=== PATIENT | female | born 1970 | race Caucasian/White ===

== ENCOUNTER 2018-03-15 21:31 | Inpatient (IN) | payer BC ==
[~2018-03-15] VITALS: Ht 167.6 cm; Wt 78.5 kg
--- NOTE | ~2018-03-15 | HC ---
[facility] [place] [address] CONSULTATION Name: LIUDMILA ESCALERA Room #: 411-P [facility] IN M.R.#: [id number] Admission: 03/15/18 Attend Phys: Rangel Santizo MD Discharge: 03/16/18 Date of : 74 Report #: [id number] THIS REPORT FOR: //name// CC: Rangel Sweet CHIEF COMPLAINT: Right ureteral stone. HISTORY OF PRESENT ILLNESS: The patient is a very pleasant 47-year-old woman who is being seen today at the request of Dr. Santizo for evaluation and management of right distal ureteral stone. Specifically, she was admitted through the emergency room with a right distal ureteral stone. She has complained of urgency and frequency and had discomfort. She currently is pain free and not requiring any pain medication. ALLERGIES: TEQUIN. ILLNESSES: Nephrolithiasis, hypertension, and hypercholesterolemia. HOME MEDICATIONS: Include fenofibrate 160 mg daily, Lopressor 100 mg daily, and albuterol sulfate. SOCIAL HISTORY: Nonsmoker. She does not drink. REVIEW OF SYSTEMS: No shortness of breath or chest pain. PHYSICAL EXAMINATION: GENERAL: She is a comfortable woman. She appears in no acute distress. VITAL SIGNS: Temperature is 36.2, pulse 57, respirations 16, and blood pressure 86/44. ABDOMEN: Soft. LABORATORY DATA: White count 9.3 thousand, hemoglobin 12.4, hematocrit 35.6, and platelets 382,000. Sodium 136, potassium 4.0, chloride 102, CO2 of 21, BUN 25, and creatinine is 1.0. Urine is clear yellow, specific gravity is 1.010, pH is 6, negative ketones, blood or nitrites. CT scan shows a small right renal stone with a dilated renal pelvis and ureter with a stone that measures 3.2 x 5.6 mm right at the ureterovesical junction on the right side. IMPRESSION: Right hydronephrosis, right ureterovesical junction stone. PLAN: Strain urine to check a KUB, recommend Flomax, if her blood pressure is above 100 systolic, she certainly could be observed for the time being with a very close followup and if her pain is controlled, she could even be discharged with a short term followup in the office. Otherwise, I did discuss ureteroscopy with her and issues related to stent placement and stent removal. [address] [address] CONSULTATION Name: LIUDMILA ESCALERA Room #: 411-P [facility] IN M.R.#: [id number] Admission: 03/15/18 Attend Phys: Rangel Santizo MD Discharge: 03/16/18 Date of : 74 Report #: [id number] Thank you for allowing me to participate in her care. By: 0738 1105 Dean Champion MD /nt
[~2018-03-15 21:31] MED LIST changes: -FENOFIBRATE160 MG PO; -FLOMAX0.4 MG PO; -LOPRESSOR100 M1 PO; -OLMESARTAN MEDO40 MG PO; -VENTOLIN HFA 1818 GM INH
[2018-03-15 21:32] VITALS: BP 120/79
[2018-03-15 22:05] LABS: URINE BILIRUBIN NEGATIVE (Negative); URINE BLOOD NEGATIVE (Negative); URINE CLARITY CLEAR; URINE COLOR YELLOW; URINE GLUCOSE-RANDOM* NEGATIVE (Negative); URINE KETONES NEGATIVE (Negative); URINE LEUKOCYTES NEGATIVE (Negative); URINE NITRITE NEGATIVE (Negative); URINE PROTEIN (DIPSTICK) NEGATIVE (Negative); URINE UROBILINOGEN 0.2 E.U./dl (0.2-1.0)
[2018-03-15 22:17] LABS: ABSOLUTE NEUTROPHILS 6.3 thou/uL (1.4-8.2); BASOPHILS 0.6 % (0.0-2.0); EOSINOPHILS 0.7 % (0.0-3.0); HEMATOCRIT 35.6 % (37.0-47.0); HEMOGLOBIN 12.4 gm/dL (12.0-15.0); LYMPHOCYTES 23.8 % (24.0-44.0); MCH 29.4 pg (26.0-34.0); MCHC 34.8 g/dL (28.0-37.0); MCV 84.5 fL (80.0-100.0); MONOCYTES 7.3 % (1.0-8.0); PLATELET COUNT 382 thou/uL (150-400); POLYS 67.6 % (36.0-66.0); RBC 4.21 mil/uL (4.20-5.00); RDW 13.1 % (10.5-14.5); WBC 9.3 thou/uL (4.0-11.0)
[2018-03-15 22:31] LABS: CALCIUM 9.9 mg/dL (8.5-10.1)
[2018-03-15] MEDS ORDERED: LOPRESSOR100 M1 PO (22:32)
[2018-03-15] MEDS ORDERED: OLMESARTAN MEDO40 MG PO (22:33)
[2018-03-15 22:35] LABS: ALBUMIN 4.5 g/dL (3.4-5.0); TOTAL BILIRUBIN 0.4 mg/dL (<0.1-1.0); TOTAL PROTEIN 7.8 g/dL (6.4-8.2)
[2018-03-15] MEDS ORDERED: FENOFIBRATE160 MG PO (22:36)
[2018-03-15] MEDS ORDERED: VENTOLIN HFA 1818 GM INH (22:37)
[2018-03-16 01:10] VITALS: BP 110/63
[2018-03-16 01:34] VITALS: BP 103/63
[2018-03-16 04:00] VITALS: BP 86/44
[2018-03-16 08:36] VITALS: BP 94/63
[2018-03-16] MEDS ORDERED: FLOMAX0.4 MG PO (09:21)
[2018-03-16 10:02] VITALS: BP 94/63
== END 2018-03-16 10:50 | disposition home or self-care (01) | DRG 694 ==
LOC: ER 21:31 → 4N 23:54 → EROBS 23:54 → 4N 03-16 01:10
PROVIDERS: Physician Assistant
DX: N13.2 Hydronephrosis with renal and ureteral calculous obstruction (principal); I10 Essential (primary) hypertension; K59.00 Constipation, unspecified; E78.00 Pure hypercholesterolemia, unspecified; N83.202 Unspecified ovarian cyst, left side; N83.201 Unspecified ovarian cyst, right side; Z79.899 Other long term (current) drug therapy; Z88.8 Allergy status to other drugs, medicaments and biological substances

== ENCOUNTER → 2018-03-15 | Outpatient (CLI) | payer BC ==
[~2018-03-15] MED LIST: FENOFIBRATE160 MG PO; FLOMAX0.4 MG PO; IBUPROFEN 600600 M1 PO; LOPRESSOR100 M1 PO; NORCO 5-325 TA1 EACH PO; OLMESARTAN MEDO40 MG PO; VENTOLIN HFA 1818 GM INH
== END ==
LOC: ULTRA 15:16
DX: N83.291 Other ovarian cyst, right side (principal); N83.292 Other ovarian cyst, left side

== ENCOUNTER → 2018-03-30 | Outpatient (CLI) | payer BC ==
[~2018-03-30] MED LIST changes: +FENOFIBRATE160 MG PO; +FLOMAX0.4 MG PO; +LOPRESSOR100 M1 PO; +OLMESARTAN MEDO40 MG PO; +VENTOLIN HFA 1818 GM INH
== END ==
LOC: RAD 00:36
DX: Z12.31 Encounter for screening mammogram for malignant neoplasm of breast (principal)

== ENCOUNTER → 2018-10-18 | Outpatient (CLI) | payer BC ==
[~2018-10-18] MED LIST changes: +XANAX 0.5 MG0.5 MG PO
--- NOTE | ~2018-10-18 | H ---
[facility] [place] [address] HISTORY AND PHYSICAL Name: LIUDMILA ESCALERA Room #: REG [facility] M..#: [id number] Admission: 10/18/18 Attend Phys: Ethan Hawthorne MD Discharge: Date of : 74 Report #: [id number] THIS REPORT FOR: //name// CC: Ethan Sweet MD DATE OF SERVICE: 10/18/2018 HISTORY OF PRESENT ILLNESS: The patient is a 48-year-old who came to the office today because of noticing a lump in the armpit. This is on her left side. The patient did have 3D mammogram in March and she was told that everything was fine on that. This has been there for about a year. Two to three weeks ago, she has noticed some more discomfort when she lies on the left side. No significant pain, but she is having more symptoms from it. No history of redness. The patient feels like this is about 5-6 cm. The patient initially thought that this was a problem with ingrown hair related to her shaving trauma. She has not noticed anything on the right side. The patient denies any fevers, chills or night sweats. No history of diabetes. The patient does not have any cats. She denies any weight loss. The patient did have some issues with kidney stones and urinary tract infection. She has been on antibiotics for that I believe summertime, wintertime. PAST MEDICAL HISTORY: The patient had a CT done today. There is extensive left axillary adenopathy. I did review her mammogram from March that was unremarkable. The radiologist thought that one of the possibilities is that this could be metastatic from breast cancer, but I do not think that is the case, I think this is probably lymphoma. The patient is recommended to undergo biopsy because of the suspicious for lymphoma. Open biopsy with sampling is recommended. The patient understands this and wishes to proceed. PAST MEDICAL HISTORY: She has a history of high blood pressure, elevated cholesterol. MEDICATION: Metoprolol, fenofibrate. ALLERGIES: SHE IS ALLERGIC TO TEQUIN. SIGNIFICANT OTHER ILLNESSES: No other medical history of any illnesses. No heart disease, no lung, liver disease, no kidney disease, no liver disease, no bleeding disorder, no history of blood clot. FAMILY HISTORY: There is diabetes in the family. She does not think there is any cancer history in the family. 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 She does not smoke, does not drink. REVIEW OF SYSTEMS: No headache, blurred vision, no chest pain or palpitation. No nausea or vomiting. No muscle weakness, numbness. PHYSICAL EXAMINATION: GENERAL: The patient is well-nourished female in no acute distress. HEENT: Pupils react to light. Extraocular muscles are intact. Oropharynx is clear. NECK: No adenopathy. No supraclavicular adenopathy. LUNGS: Clear to auscultation. HEART: Regular rate and rhythm. No murmur or gallop. The patient does have extensive left axillary adenopathy on exam. Actually, fairly firm feeling mass is present, quite suspicious for malignancy. ABDOMEN: Soft, nondistended, nontender. No organomegaly. EXTREMITIES: No cyanosis, clubbing or edema. The patient moves all extremities well. IMPRESSION: The patient is a 48-year-old who has abnormal mass in the left axilla. CT shows fairly extensive adenopathy. There are multiple lymph nodes that are 2 cm and deeper to that there are several nodes that are 4 cm. These do look pathological. I did review her mammogram and from March I do not see anything on that. I suspect the patient has lymphoma. The patient is recommended to undergo biopsy. Excisional biopsy will be done to get a larger specimen for rule out lymphoma and typing of the lymphoma. The patient understands my recommendation and wishes to proceed. By: [id number] Ethan Hawthorne MD /nt
== END ==
LOC: CAT 15:10
DX: R22.32 Localized swelling, mass and lump, left upper limb (principal); J98.4 Other disorders of lung; K76.9 Liver disease, unspecified; I10 Essential (primary) hypertension; E78.5 Hyperlipidemia, unspecified

== ENCOUNTER → 2018-10-19 | Day surgery (SDC) | payer BC ==
[~2018-10-19] VITALS: Ht 177.8 cm; Wt 80.3 kg
--- NOTE | ~2018-10-19 | O ---
[facility] [place] [address] OPERATIVE REPORT Name: LIUDMILA ESCALERA Room #: REG [facility] M.R.#: [id number] Admission: 10/19/18 Attend Phys: Ethan Hawthorne MD Discharge: Date of : 74 Report #: [id number] THIS REPORT FOR: //name// CC: Ethan Sweet MD DATE OF SERVICE: 10/19/2018 PREOPERATIVE DIAGNOSIS: Left axillary adenopathy suspicious for lymphoma. POSTOPERATIVE DIAGNOSIS: Left axillary adenopathy, final path pending. PROCEDURE PERFORMED: Left axillary node biopsy. ANESTHESIA: General. COMPLICATIONS: None. BLOOD LOSS: 15 mL. PROCEDURE NOTE: With the patient under general anesthesia with LMA placed, the left axilla was prepped and draped in a sterile fashion. The patient did receive preoperative IV antibiotics. Timeout was performed. Skin was anesthetized with 0.25% Marcaine. A transverse incision approximately 3-4 cm was made. The patient has large lymph nodes and they are clinically matted together. There is a more superficial node that is seen on ultrasound. It does have a more spherical shape likely abnormal. There are some deeper nodes present too. After incising through the skin and subcutaneous tissue, the more superficial node was palpated and this was dissected free. Clips were applied to the veins and artery feeding this node. Specimen was removed. There is a larger deeper node that was exposed. This would be difficult to remove completely. I decided to take a wedge of this. The wedge measured approximately 1.5 cm. This did have a whitish appearance and this is very firm tissue. Hemostasis was then obtained with cautery of the remaining portion of that node. Hemostasis obtained. The axillary envelope was then closed with 4-0 PDS. Skin was closed with 5-0 PDS. Mastisol, Steri-Strip, 4 x 4, OpSite used for dressing. Specimen was taken to pathology. Dr. Lubin was involved with another case. I did hear from her and went back to look at the slides. This does look like a poorly differentiated cancer on touch prep. She is not sure that this is lymphoma. She is favoring more carcinoma or even melanoma. The patient's left breast was examined with ultrasound preoperatively and it did not see anything on ultrasound. This specimen will be processed for permanent sectioning, special stain and also flow cytometry. The patient was taken to [address] [address] OPERATIVE REPORT Name: JWLIUDMILA Room #: REG [facility] M.R.#: [id number] Admission: 10/19/18 Attend Phys: Ethan Hawthorne MD Discharge: Date of : 74 Report #: [id number] recovery room. The preliminary frozen section report was discussed with the and later with the patient when she woke up more. By: 1800 0422 Ethan Hawthorne MD /nt
--- NOTE | ~2018-10-19 | PATH ---
[facility] [address] [place] [address] PATHOLOGY RPT PROCEDURE Name: LIUDMILA ESCALERA Room #: REG [facility] M.R.#: [id number] Admission: 10/19/18 Date of : 74 Discharge: Report #: [id number] Path Case #: [id number] [facility] Accession Number: [id number] . 01 Material submitted: . LEFT AXILLARY NODE - FS . 01 Clinical history: . Left axillary mass . 02 Diagnosis: Lymph node, left axillary mass/node, excisional biopsy: - POORLY DIFFERENTIATED CARCINOMA (NON-SMALL CELL CARCINOMA, PLEASE SEE COMMENT). [facility]/10/25/2018 . 02 Comment: A portion of this lymph node was sent for flow cytometric analysis (as requested by Dr. Hawthorne). The analysis showed no diagnostic immunophenotypic evidence of B-cell non-Hodgkin lymphoma please refer to a complete report from [facility] [id number]. Multiple immunohistochemical stains are performed based on the morphology of the lymph node which showed lack of obvious gland formation, or presence of keratin. The immunohistochemical stains CK7 and AE1/AE3 show membranous reactivity. CK5/6 showed focal rare reactive cells present. CK20 is nonreactive. Vimentin shows reactivity within the lymphocytes; however, is nonreactive within the tumor. CD45 and CD138 are nonreactive. HMBE-1, MART1 (red), S100 (red), TTF-1, PAX8, and CDX2 are all nonreactive. ER shows weak to faint reactivity in less than 1% of the cells, is therefore interpreted as negative. P16 shows strong diffuse reactivity within numerous tumor cells. WT1 shows nuclear reactivity within approximately 2% of the tumor cells; has a high nonspecific background staining. Overall, based on the immunohistochemical stains, the tumor represents a poorly differentiated non-small cell carcinoma with likely origin from either breast, Mullerian primaries including endocervical as well as ectocervix and oropharyngeal origins. The unlikely primaries, due to the immunohistochemical pattern, include a lung adenocarcinoma, kidney/renal cell carcinoma, mesothelioma, melanoma, gastrointestinal tract, as well as a lymphoma. . This case was co-reviewed by Dr. Sammy Morton who concurs with my diagnosis. Findings of this case are discussed with Dr. Hawthorne multiple times, and the final result and the differential diagnosis were conveyed at 10:37 am on 10/25/2018. (IUV:pit 10/25/2018) . 02 Electronically signed: . Lashaun Lubin MD, [place] [address] PATHOLOGY RPT PROCEDURE Name: LIUDMILA ESCALERA Room #: REG [facility]..#: [id number] Admission: 10/19/18 Date of : 74 Discharge: Report #: [id number] Path Case #: [id number] NPI- [id number] . 01 Gross description: . Specimen is received fresh from the OR, labeled with the patient's name, and "left axillary node", consists of fatty fragment of tissue measuring approximately 3 x 2 x 2 cm, sectioned to show one markedly firm lymph node measuring 1 cm. The second lymph node is fatty replaced with a thin rim of tissue evident. Touch preparations are made and used for immediate evaluation requested by Dr. Ethan Hawthorne. The touch preparation is labeled TPA1. Specimen is serially sectioned and the larger fatty replaced lymph node is submitted in A1 and A1, while the markedly enlarged, firm smaller lymph node is submitted in A3. . A tiny portion is sectioned from both the lymph nodes and is submitted for flow cytometric analysis and sent to [facility]. (IUV:kelsey; 10/19/2018) . TOUCH PREPARATION DIAGNOSIS (Lashaun Lubin MD) . TPA1, left axillary node, excisional biopsy: - POORLY DIFFERENTIATED MALIGNANCY IDENTIFIED. . These findings are discussed with Dr. Ethan Hawthorne at [facility]. (IUV:kelsey; 10/19/2018) . Touch preparation performed at [facility], [address] [place] [address], [place] [address]. /TOB . 02 Pathologist provided ICD-10: C77.3 . 02 CPT . 081361, 875892, N61442, Z03495 Specimen Comment: A courtesy copy of this report has been sent to Specimen Comment: [phone], . Specimen Comment: Report sent to / DR PEREZ Specimen Comment: A duplicate report has been generated due to demographic updates. Performed at: 01 [facility] [address], [place], [place] [id number] MD Benito Nichols MD Phone: [phone] Performed at: [address] [id number] [facility] [address] [place] [address] PATHOLOGY RPT PROCEDURE Name: LIUDMILA ESCALERA Room #: REG [facility] M.R.#: [id number] Admission: 10/19/18 Date of : 74 Discharge: Report #: [id number] Path Case #: [id number] MD Lashaun Lubin MD Phone: [phone]
[2018-10-19 13:15] VITALS: BP 113/52
[2018-10-19 16:46] VITALS: BP 113/52
== END | disposition home or self-care (01) ==
LOC: OR 12:21
DX: C77.3 Secondary and unspecified malignant neoplasm of axilla and upper limb lymph nodes (principal); I10 Essential (primary) hypertension; E78.00 Pure hypercholesterolemia, unspecified; Z79.899 Other long term (current) drug therapy; Z87.442 Personal history of urinary calculi; Z98.890 Other specified postprocedural states; Z79.891 Long term (current) use of opiate analgesic; Z88.8 Allergy status to other drugs, medicaments and biological substances
CPT/HCPCS: 50010; 50101; 50386; 50417; 51301; 56525; 56526; 62110; 62900; 70005

== ENCOUNTER → 2018-10-28 | Outpatient (CLI) | payer BC ==
--- NOTE | ~2018-10-28 | H ---
[facility] [place] [address] HISTORY AND PHYSICAL Name: LIUDMILA ESCALERA Room #: REG [facility] M..#: [id number] Admission: 10/28/18 Attend Phys: Ethan Hawthorne MD Discharge: Date of : 74 Report #: [id number] THIS REPORT FOR: //name// CC: Ethan Sweet DATE OF SERVICE: 11/01/2018 PREOPERATIVE DIAGNOSIS: Metastatic cancer to the left axilla, possible left breast primary. The patient is here for Port-A-Cath to facilitate chemotherapy. HISTORY OF PRESENT ILLNESS: The patient is a 48-year-old who recently underwent biopsy of left axillary adenopathy. Unfortunately, this came back with metastatic adenocarcinoma, most likely left breast. The MRI does not show a distinct mass in the breast. There is a question of a benign enhancing area on the right breast, which will be worked up in the near future with ultrasound and possible biopsy. The patient will need to have chemotherapy to treat this advanced aggressive metastatic cancer to the left axilla. The Port-A-Cath was discussed. The patient is here for procedure. PAST MEDICAL HISTORY AND MEDICATION: Please see the recent list. No changes in her histories. PHYSICAL EXAMINATION: GENERAL: The patient is a well-nourished female. She did have quite a bit of reaction to the OpSite from her last surgery. HEART: Regular rate and rhythm. No murmur or gallop. LUNGS: Clear. ABDOMEN: Soft, nondistended, nontender. LYMPHATICS: The patient has a large left axillary adenopathy. No swelling in the right side of the chest or arm. IMPRESSION: The patient is a 48-year-old with recently diagnosed left axillary metastatic disease, likely etiology of coming from the left breast adenocarcinoma, which is poorly differentiated. The patient is here for Port-A-Cath placement to facilitate chemotherapy. The patient was recently seen by Dr. Stahl, oncologist. She is also not to have further workup for right breast lesion, which is probably benign. By: 00 28 Ethan Hawthorne MD /nt
== END ==
LOC: MRI 11:42
DX: C77.3 Secondary and unspecified malignant neoplasm of axilla and upper limb lymph nodes (principal)

== ENCOUNTER 2018-11-02 08:09 | Day surgery (SDC) | payer BC ==
[2018-11-02 11:14] VITALS: BP 107/52
--- NOTE | 2018-12-09 11:30 | O ---
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 SURGEON: Ethan Hawthorne MD ANESTHESIA: General anesthesia. COMPLICATIONS: None. BLOOD LOSS: 5 mL. PROCEDURE NOTE: With the patient under IV sedation, the patient has a seroma from the left axillary node biopsy. This was aspirated with ultrasound guidance. Serous fluid was obtained, but it was difficult due to debris within this fibrin material that made it hard to aspirate completely. The lump size decreased. I also looked at her medial part of the right breast and ultrasound. I do not see any suspicious lesion. The right chest and neck was then prepped and draped in sterile fashion. The patient did receive preoperative IV antibiotic. Timeout was performed. A 0.25% Marcaine was used to anesthetize the skin about 2.5 cm incision that was made underneath the right clavicle. Dissection was through the subcutaneous tissue down to the pectoralis fascia. Dissection was then carried out inferiorly with the cautery, creating a pocket for the port. A port was placed in the pocket and fitted well. The patient was then placed in Trendelenburg position. Right subclavian vein was accessed without difficulty. The vein was found on the first pass. Wire was threaded through the needle without difficulty. On fluoroscopy, the wire was in a good position going down to the superior vena cava. The catheter was then measured from the chest to the port site. The catheter was trimmed at 19 cm. The catheter was then fitted to the port and the locking plastic piece was then placed to hold the catheter to lock the catheter in place. The port and the catheter were flushed with heparinized saline. Dilator was then placed over the wire. The Peel-Apart sheath was placed and the dilator was then placed over the wire, removing the dilator and the wire. Catheter was then placed inside the Peel-Apart sheath. The sheath was peeled apart without difficulty, leaving the catheter in the vein. The port was then placed in the pocket. Antibiotic irrigation was performed with bacitracin. The port was then sutured to the fascia with 2-0 Prolene times 2 to the upper 2 corners [address] was [address] with a suture to be tied to. Irrigation was performed. Subcutaneous tissue was closed with 4-0 PDS. Skin was closed with 5-0 PDS. Steri-Strips applied. The [address] [address] OPERATIVE REPORT Name: LIUDMILA ESCALERA Room #: DEP [facility] M..#: [id number] Admission: 11/02/18 Attend Phys: Ethan Hawthorne MD Discharge: 11/02/18 Date of : 74 Report #: [id number] port was then accessed without difficulty. Blood was withdrawn. The port was then flushed with heparinized saline. Needle was removed. The patient tolerated the procedure well. <ELECTRONICALLY SIGNED> By: Ethan Hawthorne MD 12/09/18 1130 [id number] Ethan Hawthorne MD /nt
== END 2018-11-02 14:10 | disposition home or self-care (01) ==
LOC: OR 08:09 → TBA 08:09 → OR 14:10
DX: Z45.2 Encounter for adjustment and management of vascular access device (principal); C77.3 Secondary and unspecified malignant neoplasm of axilla and upper limb lymph nodes; Z87.442 Personal history of urinary calculi; Z79.899 Other long term (current) drug therapy; Z79.891 Long term (current) use of opiate analgesic; Z98.890 Other specified postprocedural states; Z88.8 Allergy status to other drugs, medicaments and biological substances
CPT/HCPCS: 50010; 50101; 50386; 50403; 51938; 56524; 56525; 62110; 62850; 70005

== ENCOUNTER 2018-12-21 19:31 | Emergency (ER) | payer BC ==
[~2018-12-21] VITALS: Ht 167.6 cm; Wt 78.9 kg
[2018-12-21] MEDS ORDERED: CARBOPLATI10 MG/1 ML (19:43)
[2018-12-21] MEDS ORDERED: TAXOL IV (19:43)
[2018-12-21 20:10] LABS: ABSOLUTE NEUTROPHILS 4.2 thou/uL (1.4-8.2); BASOPHILS 0.5 % (0.0-2.0); EOSINOPHILS 0.4 % (0.0-3.0); HEMATOCRIT 28.1 % (37.0-47.0); HEMOGLOBIN 10.1 gm/dL (12.0-15.0); LYMPHOCYTES 21.1 % (24.0-44.0); MCH 31.4 pg (26.0-34.0); MCHC 35.9 g/dL (28.0-37.0); MCV 87.5 fL (80.0-100.0); MONOCYTES 5.9 % (1.0-8.0); PLATELET COUNT 209 thou/uL (150-400); POLYS 72.1 % (36.0-66.0); RBC 3.21 mil/uL (4.20-5.00); WBC 5.9 thou/uL (4.0-11.0)
[2018-12-21 20:19] LABS: CALCIUM 8.9 mg/dL (8.5-10.1); CREATININE 0.9 mg/dL (0.6-1.0); POTASSIUM 3.2 mmol/L (3.5-5.1)
[2018-12-21] MEDS ORDERED: NORCO 5-325 TA1 EACH PO (23:33)
[2018-12-21 23:36] VITALS: BP 106/58
== END 2018-12-21 23:45 | disposition home or self-care (01) ==
LOC: ER 19:31
PROVIDERS: Student in an Organized Health Care Education/Training Program
DX: M25.511 Pain in right shoulder (principal); M25.551 Pain in right hip; C50.912 Malignant neoplasm of unspecified site of left female breast; I10 Essential (primary) hypertension; E78.00 Pure hypercholesterolemia, unspecified; Z87.442 Personal history of urinary calculi

== ENCOUNTER → 2019-12-19 | Outpatient (CLI) | payer BC ==
[~2019-12-19] MED LIST changes: +CARBOPLATI10 MG/1 ML; +TAXOL IV
== END ==
LOC: CAT 10:05
DX: R91.8 Other nonspecific abnormal finding of lung field (principal); J20.9 Acute bronchitis, unspecified; Z98.82 Breast implant status